=== PATIENT | male | born 1995 | race African-American/Black ===

== ENCOUNTER 2016-02-17 22:06 | Emergency (ER) | payer OTHER ==
[~2016-02-17] VITALS: Ht 185.4 cm; Wt 75.0 kg
--- OUTSIDE RECORDS SUMMARY | 2016-02-17 22:12 | XMS REPORT | Continuity of Care Document ---
Author Author [facility] Organization [facility] Address [address] [place] [address] Phone Unavailable Care Team Providers Care Oxyacetylene Cutter Name Role Phone Gregory Alvarez DO PCP [phone] Insurance Providers Payer Name Policy Number Subscriber Name Relationship [employer] [id number] Pauline Palma S Mother Advance Directives Directive Response Recorded Date/Time Do You Have A Living Will? No 07/13/03 10:58am Do You Have a DPOA? No 07/13/03 10:58am Problems Medical Problems Problem Onset Date Status left 3rd molar pain Unknown Active Adenopathy Unknown Active Medications Medication Dose Route Sig Days/Qty Instructions Order Date Discontinued Date Status Azithromycin (Zithromax Z-Jalen) 250 Mg PO DIRECTED 6 Qty TWO TABLETS ( 500MG) PO TODAY THEN ONE TABLET (250MG) PO DAILY, DAYS 01/18/12 02/02/12 Discontinued Moxifloxacin Hcl 1 Drop OP THREE TIMES A DAY 1 Qty 06/22/05/12/14 Discontinued Clindamycin HCl 450 Mg PO THREE TIMES A DAY 90 Qty 05/12/14 Active Social History Social History Problem Response Recorded Date/Time History of Street Drugs? No 08/05/2014 11:31am Hospital Discharge Instructions No hospital discharge instructions. Plan of Care Discharge Date 08/05/14 12:44pm Disposition HOME, ROUTINE DIS/ASST LIVING Condition at Discharge Stable & Improved Prescriptions See Medications Section Follow-up Orders Nasal Bones 3V Min Nasal Bones 3V Min Functional Status No functional status results. Allergies, Adverse Reactions, Alerts Allergen Type Severity Reaction Status Last Updated No Known Drug Allergies Allergy Mild nkda Active 10/23/11 Immunizations No immunization records. Vital Signs Acute Vital Signs Vital Response Date/Time Height (Feet) 6 ft Height (Inches) 0.00 inches Weight (Pounds w/decimal) 170 lbs Temperature (Fahrenheit) 97.6 degrees F (97.6 - 99.5) Pulse Pulse Rate 67 bpm (60 - 100) Respiratory Rate 12 bpm (10 - 24) Oxygen Saturation O2 Sat by Pulse Oximetry 98 % (93 - 100) Blood Pressure 145/75 mm Hg Blood Pressure Mean 98 mm Hg Ambulatory Vital Signs Vital Response Date/Time Height 6 ft 05/12/2014 12:37pm Weight 171 lbs 05/12/2014 12:37pm Temperature, Oral 98.2 degrees F 05/12/2014 12:37pm Pulse Rate 62 bpm 05/12/2014 12:37pm Respiration Rate 14 bpm 05/12/2014 12:37pm Body Surface Area 1.99 m2 05/12/2014 12:37pm Body Mass Index 23.2 kg/m2 05/12/2014 12:37pm Results Test Source Date Result Interp. Ref. Range Comments Urine Amorphous Sediment September 18, 2009 3:28pm None seen /LPF NONE SEEN Urine Appearance September 18, 2009 3:28pm Clear CLEAR Urine Bacteria September 18, 2009 3:28pm Few /HPF H NONE SEEN Urine Bilirubin September 18, 2009 3:28pm Negative NEGATIVE Urine Blood September 18, 2009 3:28pm Negative NEGATIVE Urine Color September 18, 2009 3:28pm Yellow YELLOW Urine Comment April 11, 2008 12:00am Not Performed Urine Crystals September 18, 2009 3:28pm None seen NONE SEEN Urine Epithelial Cells September 18, 2009 3:28pm 0-5 /LPF NONE SEEN Urine Glucose (UA) July 26, 2008 12:00am Negative mg/dL NEGATIVE Urine Granular Casts September 18, 2009 3:28pm None seen /LPF NONE SEEN Urine Hyaline Casts September 18, 2009 3:28pm None seen /LPF 0-1/LPF Urine Ictotest July 26, 2008 12:00am Not Performed NEGATIVE Urine Ketones September 18, 2009 3:28pm Negative NEGATIVE Urine Leukocyte Esterase September 18, 2009 3:28pm Negative NEGATIVE Urine Mucus September 18, 2009 3:28pm Moderate /LPF NONE SEEN Urine Nitrite September 18, 2009 3:28pm Negative NEGATIVE Urine Occult Blood July 26, 2008 12:00am Negative NEGATIVE Urine Protein September 18, 2009 3:28pm Negative mg/dL NEGATIVE Urine RBC September 18, 2009 3:28pm 0-3 /HPF 0-3/HPF Urine Red Blood Cell Casts September 18, 2009 3:28pm None seen /LPF NONE SEEN Urine Specific [place] September 18, 2009 3:28pm 1.020 1.005-1.030 Urine Trichomonas September 18, 2009 3:28pm None seen /HPF NONE SEEN Urine Urobilinogen July 26, 2008 12:00am 0.2 mg/dL N 0.0-1.0 Urine WBC September 18, 2009 3:28pm 0-5 /HPF 0-5/HPF Urine Waxy Casts September 18, 2009 3:28pm None seen /LPF NONE SEEN Urine White Blood Cell Casts September 18, 2009 3:28pm None seen /LPF NONE SEEN Urine Yeast September 18, 2009 3:28pm None seen /HPF NONE SEEN Urine pH September 18, 2009 3:28pm 7.5 4.0-8.0 Urine Glucose September 18, 2009 3:28pm Negative mg/dL NEGATIVE Procedures Procedure Status Date Provider(s) X-RAY EXAM OF ANKLE completed 08/05/14 EMERGENCY DEPT VISIT completed 08/05/14 X-ray of left ankle, three or more views completed 08/05/14 Kvng Patel MD Encounters Encounter Location Date/Time Discharged [facility] 08/16/14 12:33pm Departed Emergency Room [facility] 08/05/14 11:26am
[2016-02-17] MEDS ORDERED: PRED20TA PO (22:43)
[2016-02-17] MEDS ORDERED: predniSONE 20 MG (DELTASONE) TABLET PO ONE (22:45)
[2016-02-17 22:58] VITALS: BP 139/78
== END 2016-02-17 22:59 | disposition home or self-care (01) ==
LOC: ED 22:09
DX: L50.9 Urticaria, unspecified (principal)
CPT/HCPCS: 99282; 99283